=== PATIENT | female | born 1970 | race Hispanic/Latino ===

== ENCOUNTER 2017-10-29 01:35 | Emergency (ER) | payer SELFPAY ==
[2017-10-29] MEDS ORDERED: Acetaminophen/Codeine 30-300mg Tablet ONE (03:03)
== END 2017-10-29 03:16 | disposition home or self-care (01) ==
LOC: ERS 01:35
DX: K08.89 Other specified disorders of teeth and supporting structures (principal); I10 Essential (primary) hypertension
CPT/HCPCS: 99282

== ENCOUNTER 2018-02-14 01:04 | Emergency (ER) | payer SELFPAY ==
[2018-02-14 03:01] LABS: #Lymphocytes 1.1 thou/uL (1.20-3.40); #Monocytes 0.2 thou/uL (0.11-0.59); #Neutrophils 4.9 thou/uL (1.40-6.50); %Basophils 0.1 % (0.0-1.0); %Eosinophils 0.7 % (0.0-10.0); %Lymphocytes 17.1 % (21.0-51.0); %Monocytes 3.7 % (0.0-10.0); %Neutrophils 78.3 % (42.0-75.0); Hemoglobin 11.3 g/dL (12.0-16.0); Mean Corpuscular HGB CONC 32.6 g/dL (32.0-36.0); Mean Corpuscular Hemoglobin 24.7 pg (27.0-31.0); Mean Corpuscular Volume 75.7 fl (81.0-99.0); Mean Platelet Volume 6.6 fL (7.4-10.4); Platelet Count 287 thou/uL (130-400); RBC Distribution Width 14.2 % (11.5-14.5); Red Blood Cell (RBC) Count 4.59 mill/uL (4.20-5.40); White Blood Cell (WBC) Count 6.3 thou/uL (4.8-10.8)
[2018-02-14] MEDS ORDERED: Ketorolac Tromethamine 30 MG/ML VIAL ONE (03:05)
[2018-02-14] MEDS ORDERED: Metoclopramide HCl 10 MG/2 ML VIAL ONE (03:06)
[2018-02-14 03:07] LABS: BHCG - Serum Negative (NEGATIVE); Pregs Control Background? CLEAR/WHITE (CLR/WHITE); Pregs Control Bar Appear? YES (CONTROL BAR)
[2018-02-14 03:24] LABS: ALT (SGPT) 13 U/L (8-55); AST (SGOT) 11 U/L (5-34); Albumin 3.6 g/dL (3.5-5.0); Alkaline Phosphatase 55 U/L (40-150); Anion Gap 10 mmol/L (10-20); BUN (Urea Nitrogen) 12 mg/dL (7.0-18.7); Bilirubin, Total 0.6 mg/dL (0.2-1.2); Calc. Creatinine Clearance 0 mL/min (70-130); Calcium 9.1 mg/dL (7.8-10.44); Carbon Dioxide 25 mmol/L (22-29); Chloride 104 mmol/L (98-107); Estimated GFR-MDRD Greater than 90; Globulin 3.9 g/dL (2.4-3.5); Glucose 251 mg/dL (70-105); Potassium 4.1 mmol/L (3.5-5.1); Protein, Total 7.5 g/dL (6.0-8.3); Sodium 135 mmol/L (136-145)
== END 2018-02-14 05:34 | disposition home or self-care (01) ==
LOC: ERS 01:04
DX: E11.9 Type 2 diabetes mellitus without complications; Z79.84 Long term (current) use of oral hypoglycemic drugs; H53.149 Visual discomfort, unspecified; R51 Headache; I10 Essential (primary) hypertension
CPT/HCPCS: 36415; 80053; 84703; 85025; 96365; 96375; J1885; J2765

== ENCOUNTER 2018-03-11 20:54 | Emergency (ER) | payer SELFPAY ==
[~2018-03-11 20:54] MED LIST: ISOVUE-370 76%-LOCM 1 ML ONE
--- NOTE | 2018-03-11 21:58 | RAD ---
TWO VIEWS OF THE CHEST 03/11/18 COMPARISON: None. HISTORY: Cough. FINDINGS: Lungs are clear. Heart and mediastinal contours are unremarkable. IMPRESSION: No acute findings. POS: [facility]
[2018-03-11 22:53] LABS: Band 4 % (5-11); Eosinophils 1 % (0-10); Hemoglobin 10.7 g/dL (12.0-16.0); Lymphocytes 76 % (21-51); MDiff Complete? YES; Mean Corpuscular HGB CONC 33.2 g/dL (32.0-36.0); Mean Corpuscular Hemoglobin 25.2 pg (27.0-31.0); Mean Corpuscular Volume 75.9 fl (81.0-99.0); Mean Platelet Volume 7.3 fL (7.4-10.4); Monocytes 1 % (0-10); Neutrophil 18 % (42-75); PLT Morphology Comment Appears Adequate; Platelet Count 199 thou/uL (130-400); RBC Distribution Width 15.1 % (11.5-14.5); Red Blood Cell (RBC) Count 4.27 mill/uL (4.20-5.40); White Blood Cell (WBC) Count 7.2 thou/uL (4.8-10.8)
[2018-03-11 22:55] LABS: ALT (SGPT) 18 U/L (8-55); AST (SGOT) 27 U/L (5-34); Albumin 2.9 g/dL (3.5-5.0); Alkaline Phosphatase 70 U/L (40-150); Anion Gap 9 mmol/L (10-20); BUN (Urea Nitrogen) 9 mg/dL (7.0-18.7); Bilirubin, Total 0.4 mg/dL (0.2-1.2); CK (CPK) 46 U/L (29-168); Calc. Creatinine Clearance 0 mL/min (70-130); Calcium 8.5 mg/dL (7.8-10.44); Carbon Dioxide 25 mmol/L (22-29); Chloride 104 mmol/L (98-107); Estimated GFR-MDRD Greater than 90; Globulin 3.3 g/dL (2.4-3.5); Glucose 188 mg/dL (70-105); Lipase 9 U/L (8-78); Potassium 3.4 mmol/L (3.5-5.1); Protein, Total 6.2 g/dL (6.0-8.3); Sodium 135 mmol/L (136-145)
[2018-03-11 22:57] LABS: Bilirubin Negative (Negative); Blood, Urine Negative (Negative); Clarity CLEAR (Clear); Glucose, Urine (Dipstick) 100 mg/dL (Negative); Leukocyte Negative (Negative); Nitrite Negative (Negative); Protein, Urine (Dipstick) Trace mg/dL (Neg-Trace); Specific Gravity, Urine 1.025 (1.002-1.036)
[2018-03-11 22:57] LABS: CKMB 0.6 ng/mL (0-6.6); Troponin I Less than 0.010 ng/mL (< 0.028)
[2018-03-11] MEDS ORDERED: methylPREDNISolone Sod Succ/PF 125 MG/2 ML VIAL ONE (23:08)
[2018-03-11] MEDS ORDERED: diphenhydrAMINE 50 MG/ML VIAL ONE (23:08)
[2018-03-11] MEDS ORDERED: Famotidine 40 MG/4 ML VIAL SLOW IVP SCH (23:15)
--- NOTE | 2018-03-12 10:29 | CT ---
PRELIMINARY REPORT/[facility]/EMERGENTY AFTER-HOURS PROCEDURE CT Angiography Chest With Intravenous Contrast CLINICAL HISTORY: 48 years old, female; Signs and symptoms; Cough; Symptoms not specified; Patient HX: Pt states cough with back pain and fever TECHNIQUE: Axial computed tomographic angiography images of the chest with intravenous contrast using pulmonary embolism protocol. MIP reconstructed images were created and reviewed. COMPARISON: No relevant prior studies available. FINDINGS: Pulmonary arteries: No pulmonary embolism. The pulmonary arteries are normal in size Aorta: No thoracic aortic aneurysm. No dissection. Lungs: No evidence of consolidation. No pulmonary edema. Pleural space: Unremarkable. No significant effusion. No pneumothorax. Heart: No cardiomegaly or significant pericardial effusion. Bones/joints: No acute fracture. No dislocation. Soft tissues: Unremarkable. Lymph nodes: No enlarged lymph nodes. Gallbladder and bile ducts: Cholelithiasis without evidence of acute cholecystitis. IMPRESSION: No evidence of pulmonary embolus. No evidence of acute pulmonary pathology. Thank you for allowing us to participate in the care of your patient. Dictated and Authenticated by: Vinny Horn MD 03/12/2018 1:21 AM Central Time ([place] & [place]) FINAL REPORT EMERGENCY AFTER HOURS CTA CHEST: Date: 03/11/18 FINDINGS/IMPRESSION: I agree with the above provided preliminary interpretation from [facility]. 1. There is no CTA evidence of pulmonary embolus. 2. Incidental note of multiple gallstones. POS: [facility]
== END 2018-03-12 02:19 | disposition home or self-care (01) ==
LOC: ERS 20:54
DX: J40 Bronchitis, not specified as acute or chronic (principal); R10.13 Epigastric pain; E11.9 Type 2 diabetes mellitus without complications; Z79.84 Long term (current) use of oral hypoglycemic drugs
CPT/HCPCS: 36415; 71046; 71275; 80053; 81003; 82553; 83690; 83880; 84484; 85025; 85379; 93005; 96361; 96374; 96375; J1200; J2930

== ENCOUNTER 2018-08-16 00:21 | Observation (INO) | payer SELFPAY ==
[2018-08-16 00:55] LABS: Hemoglobin 12.9 g/dL (12.0-16.0); Mean Corpuscular HGB CONC 32.9 g/dL (32.0-36.0); Mean Corpuscular Hemoglobin 25.8 pg (27.0-31.0); Mean Corpuscular Volume 78.5 fL (78.0-98.0); Mean Platelet Volume 7.2 fL (7.4-10.4); Platelet Count 225 thou/uL (130-400); RBC Distribution Width 14.6 % (11.5-14.5); White Blood Cell (WBC) Count 5.5 thou/uL (4.8-10.8)
[2018-08-16 01:13] LABS: Band 1 % (5-11); Eosinophils 1 % (0-10); Lymphocytes 61 % (21-51); MDiff Complete? YES; Monocytes 8 % (0-10); Neutrophil 29 % (42-75); RBC Morphology Normal
[2018-08-16 01:24] LABS: ALT (SGPT) 16 U/L (8-55); AST (SGOT) 23 U/L (5-34); Alkaline Phosphatase 55 U/L (40-150); Anion Gap 15 mmol/L (10-20); BUN (Urea Nitrogen) 12 mg/dL (7.0-18.7); Bilirubin, Total 0.7 mg/dL (0.2-1.2); CK (CPK) 109 U/L (29-168); CKMB 1.1 ng/mL (0-6.6); Calc. Creatinine Clearance 0 mL/min (70-130); Calcium 9.4 mg/dL (7.8-10.44); Carbon Dioxide 20 mmol/L (22-29); Chloride 102 mmol/L (98-107); Estimated GFR-MDRD Greater than 90; Globulin 4.5 g/dL (2.4-3.5); Glucose 190 mg/dL (70-105); Potassium 4.1 mmol/L (3.5-5.1); Protein, Total 8.5 g/dL (6.0-8.3); Sodium 133 mmol/L (136-145)
[2018-08-16 01:41] LABS: Troponin I Less than 0.010 ng/mL (< 0.028)
[2018-08-16 04:23] LABS: Troponin I Less than 0.010 ng/mL (< 0.028)
[2018-08-16] MEDS ORDERED: Ondansetron HCl/PF 4 MG/2 ML Vial IVP PRN ×2 (04:23→08:14)
[2018-08-16] MEDS ORDERED: Ondansetron ODT 4 MG TAB SL PRN (04:23)
[2018-08-16 06:28] VITALS: BMI 36.6
[2018-08-16 07:20] LABS: Troponin I Less than 0.010 ng/mL (< 0.028)
--- NOTE | 2018-08-16 08:07 | RAD ---
CHEST 1 VIEW: HISTORY: Chest pain. FINDINGS: Cardiac silhouette is magnified by projection. Pulmonary vasculature unremarkable. Mediastinum is m idline. No lobar consolidation or evidence of pneumothorax. ekg monitor tech leads overlie the chest . IMPRESSION: No active cardiopulmonary abnormalities are demonstrated. POS: [facility]
[2018-08-16] MEDS ORDERED: Ondansetron ODT 4 MG TAB PO PRN (08:14)
[2018-08-16] MEDS ORDERED: Dextrose 50% Abboject 50 ML SYRINGE SLOW IVP PRN (08:14)
[2018-08-16] MEDS ORDERED: Acetaminophen 325 MG TAB PO PRN (08:14)
[2018-08-16] MEDS ORDERED: hydrALAZINE 20 MG/ML VIAL SLOW IVP PRN (08:14)
[2018-08-16] MEDS ORDERED: HumaLOG 300 UNITS/3 ML VIAL SC PRN ×2 (08:14)
[2018-08-16] MEDS ORDERED: Dextrose 5% in Water 1,000 ML IV PRN (08:14)
[2018-08-16 08:52] LABS: Cardiac Risk 4.6 (Less than 4.5)
[2018-08-16] MEDS ORDERED: Aspirin 325 MG TAB PO SCH (09:00)
--- NOTE | 2018-08-16 09:24 | ULT ---
CAROTID DUPLEX SONOGRAM: HISTORY: CVA. Atherosclerosis. FINDINGS: RIGHT: No significant plaque. Color and spectral Doppler evaluation, peak systolic velocity of 74 cm/s, and IC to CC ratio 0.9 suggests no hemodynamically significant stenosis within the extracranial right IC A. Antegrade flow within the vertebral artery. LEFT: Color and spectral Doppler evaluation, peak systolic velocity of 82 cm/s, and IC to CC ratio of 1.0 s uggests no hemodynamically significant stenosis within the extracranial left ICA. Antegrade flow wit hin the vertebral artery. IMPRESSION: No significant plaque. No sonographic evidence of significant extracranial internal carotid artery s tenosis. POS: [facility]
--- NOTE | 2018-08-16 11:38 | HP ---
She is currently in between doctors. CHIEF COMPLAINT: Chest pain, left arm and leg numbness. HISTORY OF PRESENT ILLNESS: Ms. Rivera is a pleasant 48-year-old female that has a history of diab etes mellitus. She says that she is currently in between doctors and has not had any medications for her diabetes and her high cholesterol for about a year now. She says that recently in the last week she has been noticing some numbness in her left arm and her left leg, it is off and on and does not seem to be provoked by anything in particular. Then, this morning she says that she woke up feeling "weird" in her arm and leg again was going numb. She also noted a pain that was in her left arm and it seemed to radiate up into her shoulder into the left side of her chest. She also felt a little bi t lightheaded. She checked her blood pressure and it was 143/98 and then she says she rechecked it a nd it went higher. She says that the pain was very severe. She could not really rate it and it last ed for several minutes. For this reason, she decided to come to the ER for evaluation. She says juan t the pain, sometimes it is better if she lays in certain position and it is hard for her to separate the pain and numbness and she says sometimes it is worse if she lays in a certain position. She had some shortness of breath, but no nausea, no vomiting, no diaphoresis. The patient also noted some n valentine pain, but denies any weakness in her extremities and when asked if she is currently having the sy mptoms she says she is still having the numbness right now that this moment. There have been no visu al changes. She denies doing lifting anything heavy and she denies any as excessive stress. No inju aman. REVIEW OF SYSTEMS: All systems are reviewed and are negative except for that mentioned in the histor y of present illness. PAST MEDICAL HISTORY: Significant for diabetes mellitus and elevated cholesterol. PAST SURGICAL HISTORY: She has had a x2. ALLERGIES: PENICILLIN, SHELLFISH, VICODIN. SOCIAL HISTORY: She is . She is a nonsmoker and nondrinker. Denies any drug use. She has t wo children. FAMILY HISTORY: Significant for diabetes in both parents. Father had a cerebrovascular accident. M other had a bad heart and end-stage renal disease. CURRENT MEDICATIONS: None, but she had been taking metformin and cholesterol medicine and another me dicine for her kidneys. PHYSICAL EXAMINATION: GENERAL: She is alert and oriented to person, place and time. No acute distress. She is well-devel oped and well-nourished. VITAL SIGNS: Blood pressure was 131/72, heart rate 99, respiratory rate of 16, temperature is 98. HEENT: Pupils are equal, round, and reactive. Extraocular muscles are intact. Her sclerae are anic teric. Her throat, there is no erythema, no exudates, no oral lesions. NECK: There was no adenopathy, no bruits, no jugular venous distention. LUNGS: Clear to auscultation bilaterally. There are no wheezing, rales or rhonchi. Good air moveme nt. CARDIOVASCULAR: She had a normal S1, S2. There is no S3 or S4. No murmurs, clicks or rubs. ABDOMEN: Obese, it is soft, it is nontender, nondistended. Positive for bowel sounds. There is no rebound, no guarding. EXTREMITIES: There is no calf tenderness. No joint effusions. There is no edema bilaterally. She has a good dorsalis pedis pulses bilaterally. NEUROLOGIC: Her muscle strength was 5/5 in both her upper and lower extremities. Her cranial nerves II-XII are intact and reflexes are 2+ and symmetric. SKIN AND INTEGUMENT: There are no skin lesions, no rashes, good skin turgor and good capillary refil l. IMAGING DATA AND LABORATORY DATA: Her EKG was read by me and sinus tachycardia, the rate was 110. T here are no ST wave changes. She had x-ray which I was unable to pull up. CT scan report was review ed and there was no evidence of any pulmonary embolism or pneumonia. Sodium was 133, potassium 4.1, chloride is 102, CO2 is 20, BUN of 12, creatinine of 0.68, glucose is 190. Troponins were less than 0.010. White blood cell count 5.5, hemoglobin 12.9, hematocrit is 39.3 and platelet count was 225. ASSESSMENT AND PLAN: This is a pleasant 48-year-old female that presents to the emergency room with left arm and leg numbness which has been off and on for the past week. She also has been having ches t pain as well. She has already had a CT angiogram in the emergency room which was negative for PE. She does have some risk factors for coronary artery disease including diabetes mellitus and elevated cholesterol, which has not been adequately treated recently. Therefore, 1. For chest pain, she has a normal EKG without any EKG changes and since she is under 50 years old, we will go ahead and get a regular exercise stress test to help us rule out potential coronary arter y disease. 2. For the left arm and leg numbness, it is suspected that this could be a radiculopathy versus neur opathy. However, once again since she does have risk factors for cerebrovascular disease, we will ge t an MRI of the brain, as well to rule out stroke, but we will also get an MRI of the C-spine as well . We will get bilateral carotid Dopplers. 3. For diabetes mellitus, she had been taking metformin at home a year ago, likely when she is disch arged, we will restart her on metformin. We cannot start this now due to the recent CT with contrast . In the meantime, we will place her on sliding scale insulin and we will also check a lipid panel a s well and if she requires lipid medication such as a statin, we will start that at discharge.
--- NOTE | 2018-08-16 12:18 | MRI ---
MRI BRAIN NONCONTRAST: HISTORY: Left arm and leg numbness. FINDINGS: There is no evidence of acute intracranial hemorrhage or infarct. Ventricles appear normal in size, shape, and position. There is no mass effect or shift of midline structures. Within the left side of the arfael, a rounded 0.5 cm focus of signal loss on the diffusion weighted pardeep ges shows very subtle increase in signal on the FLAIR images and minimal increase in signal on the CT weighted images. No restricted diffusion. This likely represents a small vascular malformation. M ucosal thickening is noted within the right sphenoid air cells. IMPRESSION: 1. Small cavernous hemangioma of the left side of the rafael. 2. No acute intracranial abnormalities are demonstrated. POS: [facility]
--- NOTE | 2018-08-16 13:02 | MRI ---
MRI CERVICAL SPINE NONCONTRAST: HISTORY: Left arm and leg numbness. FINDINGS: Vertebral body heights and alignment are maintained. Bone marrow signal is within normal limits. Th ere is congenital shortening of the posterior aspect of the C3 vertebral body. Posterior elements ar e intact. At the C4-5 level, diffuse posterior disk protrusion has the appearance of a chronic process, with herbert perior and inferior extension. This results in slight effacement of the ventral aspect of the thecal sac and spinal cord. No abnormal signal within the cord. The neural foramen remain patent. IMPRESSION: 1. Posterior disk protrusion at the C4-5 level slightly effaces the thecal sac and spinal cord. No evidence of myelomalacia. 2. No lateralized nerve root compression is evident. POS: [facility]
[2018-08-16 16:28] VITALS: BP 127/60; TEMP 98
--- NOTE | 2018-08-16 21:26 | DIS ---
DATE OF ADMISSION: 08/16/2018 DATE OF DISCHARGE: 08/16/2018 PRIMARY CARE PHYSICIAN: Currently does not have primary care physician. DISCHARGE DISPOSITION: Home. PRIMARY DISCHARGE DIAGNOSES: 1. Cervical radiculopathy. 2. Diabetes mellitus, type 2. 3. Dyslipidemia. 4. Obesity. The patient's body mass index is 36.6. PROCEDURES DONE DURING ADMISSION: The patient had an MRI of the brain which was negative for any acu te cerebral accident; however, did show a small hemangioma in the rafael. She had bilateral carotid Do pplers, which were negative for any flow limiting disease. She had an MRI of the cervical spine show ing some disk protrusion at C4 and C5 that effaces the thecal sac and spinal cord, but there was no e vidence of any osteomalacia. The patient had a treadmill stress test showing no ST segment depressio n and no other EKG changes. CODE STATUS: FULL CODE. ALLERGIES: HYDROCODONE, PENICILLIN and SHELLFISH. HOSPITAL COURSE: Ms. Rivera is a pleasant 48-year-old female who presented to the emergency room w ith complaints of pains in her chest and shoulder as well as numbness in her left arm and leg. Her s ymptoms had been off and on for a couple of weeks now. She also has a history of diabetes and has no t been on medications in over a year. She was placed in observation and she was ruled out. She had 3 sets of cardiac enzymes which were negative. Some of her symptoms sounded like it could be musculo skeletal or radiculopathy. For this reason, an MRI of her cervical spine was done which did show camelia e evidence of disk protrusion at C4 and C5. I suspect this is the culprit of her symptoms. She did not have any muscle weakness and her symptoms are relatively mild. Therefore, conservative managemen t is indicated. Diet and exercise as discussed with the patient. Her blood sugars are running in th e mid to high 100 range, 150-190. Therefore, she were likely to lose 10% to 15% of her body weight. She may not require medication at all. However, for now, we will be discharging her on metformin 50 0 mg twice a day. We will also place her on lisinopril 2.5 mg daily for kidney protection and simvas tatin 10 mg at bedtime. She was instructed to follow up with a primary care physician as soon as pos raffi.
== END 2018-08-16 17:12 | disposition home or self-care (01) ==
LOC: ERS 00:21 → 2SW 02:47
PROVIDERS: ADMIT Internal Medicine; ATTEND Internal Medicine
DX: M50.121 Cervical disc disorder at C4-C5 level with radiculopathy (principal); R07.9 Chest pain, unspecified; E11.9 Type 2 diabetes mellitus without complications; E78.00 Pure hypercholesterolemia, unspecified; E66.9 Obesity, unspecified; Z68.36 Body mass index [BMI] 36.0-36.9, adult; Z79.84 Long term (current) use of oral hypoglycemic drugs; Z79.899 Other long term (current) drug therapy; Z88.0 Allergy status to penicillin; Z88.5 Allergy status to narcotic agent; Z91.013 Allergy to seafood; Z91.041 Radiographic dye allergy status
CPT/HCPCS: 36415; 36416; 70551; 71045; 72141; 80053; 80061; 82553; 84484; 85025; 90471; 90686; 93005; 93017; 93880; 94760; 96360; G0008; G0378

== ENCOUNTER 2018-11-05 03:26 | Emergency (ER) | payer SELFPAY ==
[2018-11-05 03:51] LABS: #Eosinphils 0.1 thou/uL (0.0-0.7); #Lymphocytes 2.2 thou/uL (1.20-3.40); #Monocytes 0.3 thou/uL (0.11-0.59); #Neutrophils 2.4 thou/uL (1.40-6.50); %Basophils 0.1 % (0.0-1.0); %Eosinophils 2.9 % (0.0-10.0); %Lymphocytes 44.4 % (21.0-51.0); %Monocytes 5.1 % (0.0-10.0); %Neutrophils 47.6 % (42.0-75.0); Hemoglobin 12.3 g/dL (12.0-16.0); Mean Corpuscular HGB CONC 33.4 g/dL (32.0-36.0); Mean Corpuscular Volume 80.7 fL (78.0-98.0); Mean Platelet Volume 6.8 fL (7.4-10.4); Platelet Count 220 thou/uL (130-400); RBC Distribution Width 13.8 % (11.5-14.5); Red Blood Cell (RBC) Count 4.54 mill/uL (4.20-5.40)
[2018-11-05 04:13] LABS: ALT (SGPT) 13 U/L (8-55); AST (SGOT) 13 U/L (5-34); Albumin 3.8 g/dL (3.5-5.0); Alkaline Phosphatase 41 U/L (40-150); Anion Gap 13 mmol/L (10-20); BUN (Urea Nitrogen) 8 mg/dL (7.0-18.7); Bilirubin, Total 0.6 mg/dL (0.2-1.2); CK (CPK) 88 U/L (29-168); Calc. Creatinine Clearance 0 mL/min (70-130); Calcium 9.3 mg/dL (7.8-10.44); Carbon Dioxide 23 mmol/L (22-29); Chloride 102 mmol/L (98-107); Estimated GFR-MDRD Greater than 90; Globulin 3.9 g/dL (2.4-3.5); Glucose 184 mg/dL (70-105); Lipase 7 U/L (8-78); Potassium 3.7 mmol/L (3.5-5.1); Protein, Total 7.7 g/dL (6.0-8.3); Sodium 134 mmol/L (136-145)
[2018-11-05] MEDS ORDERED: Mag-Al 1200 mg/1200 mg/30 ML UDCUP ONE (04:36)
[2018-11-05] MEDS ORDERED: Lidocaine Viscous Sol 2% 15 ml UD Cup ONE (04:36)
[2018-11-05] MEDS ORDERED: Ketorolac Tromethamine 30 MG/ML VIAL ONE (04:36)
--- NOTE | 2018-11-05 08:36 | RAD ---
CHEST 1 VIEW: HISTORY: Emergency exam. Midsternal chest pain. COMPARISON: Radiograph 08/15/2018. FINDINGS: Lungs are clear. No pneumothorax or effusion. Cardiac silhouette and mediastinal contours was withi n normal limits. IMPRESSION: No acute intrathoracic abnormality. POS: [facility]
--- NOTE | 2018-11-07 16:58 | EKG ---
Test Reason : Blood Pressure : / mmHG Vent. Rate : 082 BPM Atrial Rate : 082 BPM P-R Int : 138 ms QRS Dur : 084 ms QT Int : 388 ms P-R-T Axes : 009 048 026 degrees QTc Int : 453 ms Normal sinus rhythm Normal ECG Confirmed by CHASE CROWDER ([id number]), proposal editor MARIANO WATKINS ([id number]) on 11/07/2018 4:58:11 PM Referred By: Confirmed By:CHASE CROWDER
== END 2018-11-05 06:50 | disposition home or self-care (01) ==
LOC: ERS 03:26
DX: K21.9 Gastro-esophageal reflux disease without esophagitis (principal); E11.9 Type 2 diabetes mellitus without complications
CPT/HCPCS: 36415; 71045; 80053; 82550; 83690; 83880; 84484; 85025; 85379; 93005; 94760; 96372; J1885